=== PATIENT | female | born 1990 | race African-American/Black ===

== ENCOUNTER 2021-07-21 08:28 | Outpatient (CLI) | payer OTHER ==
[2021-07-21 20:17] LABS: SARS-CoV-2 PCR by NAA Not Detected (NotDetected)
== END 2021-07-21 08:29 | disposition home or self-care (01) ==
LOC: LABBT 08:28
PROVIDERS: ATTEND Specialist
DX: Z01.818 Encounter for other preprocedural examination (principal); E66.01 Morbid (severe) obesity due to excess calories; Z20.822 Contact with and (suspected) exposure to COVID-19
CPT/HCPCS: 93005; 93010; U0003; U0005

== ENCOUNTER 2021-07-21 12:15 | Inpatient (IN) | payer OTHER ==
[2021-07-25 12:19] VITALS: BMI 41.0
[2021-07-26] MEDS ORDERED: Ketorolac Tromethamine 30 MG/ML VIAL ONE ×2 (06:18→08:16)
[2021-07-26] MEDS ORDERED: Acetaminophen 500 MG TAB ONE (06:18)
[2021-07-26] MEDS ORDERED: Levofloxacin 500 mg/D5W 100 ml Premix Bag ONE (06:18)
[2021-07-26] MEDS ORDERED: Heparin 5,000 UNITS/ML VIAL ONE (06:18)
[2021-07-26] MEDS ORDERED: Bupivacaine 0.25% HCL 30 ML VIAL ONE (06:51)
[2021-07-26] MEDS ORDERED: Lidocaine 1% w/Epinephrine 1:100K 20 ML VIAL ONE (06:51)
[2021-07-26] MEDS ORDERED: Midazolam HCl 2 mg/2 ml Vial ONE (07:30)
[2021-07-26] MEDS ORDERED: Fentanyl 100 MCG/2 ML VIAL ONE ×4 (07:32→14:04)
[2021-07-26] MEDS ORDERED: SUGAMMADEX SODIUM 200 MG/2 ML VIAL ONE (07:33)
[2021-07-26] MEDS ORDERED: Rocuronium Bromide 10 MG/ML (10ML VIAL) ONE (08:16)
[2021-07-26] MEDS ORDERED: PROPOFOL 200 MG/20 ML VIAL ONE (08:16)
[2021-07-26] MEDS ORDERED: Dexamethasone 20 MG/5 ML VIAL ONE (08:16)
[2021-07-26] MEDS ORDERED: PHENYLEPHRINE-NS 100 MCG/ML 10 ML SYRINGE ONE (08:16)
[2021-07-26] MEDS ORDERED: Ondansetron PF 4 MG/2 ML Vial ONE ×3 (08:16→15:21)
[2021-07-26] MEDS ORDERED: Lidocaine 1% PF 5 ML VIAL ONE (08:16)
[2021-07-26] MEDS ORDERED: Promethazine HCl 25 MG/ML VIAL ONE (11:29)
[2021-07-26] MEDS ORDERED: D5 1/2 NS w/20 mEq KCL 1,000 ML ONE (15:02)
[2021-07-26] MEDS ORDERED: Morphine 4 MG/ML VIAL ONE (15:21)
[2021-07-26] MEDS ORDERED: diphenhydrAMINE 50 MG/ML VIAL IVP PRN (17:11)
[2021-07-26] MEDS ORDERED: Morphine 2 MG/ML VIAL SLOW IVP PRN (17:11)
[2021-07-26] MEDS ORDERED: Dextrose 5% in Water 1,000 ML IV PRN (17:11)
[2021-07-26] MEDS ORDERED: Dextrose 50% Abboject 50 ML SYRINGE SLOW IVP PRN (17:11)
[2021-07-26] MEDS ORDERED: Promethazine HCl 25 MG/ML VIAL IM PRN (17:11)
[2021-07-26] MEDS ORDERED: hydrALAZINE 20 MG/ML VIAL SLOW IVP PRN (17:11)
[2021-07-26] MEDS ORDERED: Ketorolac Tromethamine 30 MG/ML VIAL IVP SCH (17:30)
[2021-07-26] MEDS ORDERED: Morphine 4 MG/ML VIAL SLOW IVP PRN (17:30)
[2021-07-26] MEDS: Morphine 4 MG/ML VIAL SLOW IVP PRN ×2 (17:36→20:12)
[2021-07-26] MEDS ORDERED: Pantoprazole 40 MG VIAL IVP SCH (17:45)
[2021-07-26] MEDS: D5 1/2 NS w/20 mEq KCL 1,000 ML IV SCH ×2 (18:09→21:33)
[2021-07-26] MEDS: Enoxaparin Sodium 40 MG/0.4 ML SYRINGE SC SCH (20:12)
[2021-07-26] MEDS: Ondansetron PF 4 MG/2 ML Vial IVP PRN (20:12)
[2021-07-26] MEDS: Ketorolac Tromethamine 30 MG/ML VIAL IVP SCH (23:04)
[2021-07-27] MEDS ORDERED: Promethazine HCl 25 MG/ML VIAL IM SCH (00:45)
[2021-07-27] MEDS ORDERED: Meperidine HCl/PF 25 MG/ML VIAL IM SCH (00:45)
[2021-07-27] MEDS: Ketorolac Tromethamine 30 MG/ML VIAL IVP SCH ×4 (05:14→23:56)
[2021-07-27] MEDS: D5 1/2 NS w/20 mEq KCL 1,000 ML IV SCH ×6 (05:16→23:59)
[2021-07-27 05:28] LABS: #Lymphocytes 0.9 thou/uL (1.20-3.40); #Monocytes 0.8 thou/uL (0.11-0.59); #Neutrophils 10.3 thou/uL (1.40-6.50); %Eosinophils 0.1 % (0.0-10.0); %Lymphocytes 7.3 % (21.0-51.0); %Monocytes 6.5 % (0.0-10.0); %Neutrophils 86.1 % (42.0-75.0); Hemoglobin 9.7 g/dL (12.0-16.0); Mean Corpuscular HGB CONC 32.9 g/dL (32.0-36.0); Mean Corpuscular Hemoglobin 24.7 pg (27.0-31.0); Mean Corpuscular Volume 75.1 fL (78.0-98.0); Mean Platelet Volume 9.2 fL (7.4-10.4); Platelet Count 277 thou/uL (130-400); RBC Distribution Width 15.6 % (11.5-14.5); Red Blood Cell (RBC) Count 3.91 mill/uL (4.20-5.40)
[2021-07-27 05:55] LABS: Anion Gap 10 mmol/L (10-20); BUN (Urea Nitrogen) 6 mg/dL (7.0-18.7); Calc. Creatinine Clearance 171 mL/min (70-130); Calcium 9.2 mg/dL (7.8-10.44); Carbon Dioxide 23 mmol/L (22-29); Chloride 107 mmol/L (98-107); Glucose 196 mg/dL (70-105); Potassium 4.2 mmol/L (3.5-5.1); Sodium 136 mmol/L (136-145)
[2021-07-27] MEDS: Morphine 4 MG/ML VIAL SLOW IVP PRN (08:17)
[2021-07-27] MEDS: Pantoprazole 40 MG VIAL IVP SCH (08:18)
[2021-07-27] MEDS: Ondansetron PF 4 MG/2 ML Vial IVP PRN (10:08)
[2021-07-27] MEDS: Hydrocodone-Acetamin 15 ML UDCUP PO PRN ×3 (10:08→19:54)
[2021-07-27] MEDS: Enoxaparin Sodium 40 MG/0.4 ML SYRINGE SC SCH (19:54)
[2021-07-28] MEDS: Hydrocodone-Acetamin 15 ML UDCUP PO PRN ×2 (04:11→08:34)
[2021-07-28] MEDS: Ketorolac Tromethamine 30 MG/ML VIAL IVP SCH (06:02)
[2021-07-28 07:49] VITALS: BP 115/79; TEMP 98.6
[2021-07-28] MEDS: Pantoprazole 40 MG VIAL IVP SCH (08:33)
[2021-07-28] MEDS: D5 1/2 NS w/20 mEq KCL 1,000 ML IV SCH (08:42)
== END 2021-07-28 10:55 | disposition home or self-care (01) | DRG 621 ==
LOC: SURG A 07-26 06:08 → SURG B 07-26 16:43
PROVIDERS: ADMIT Specialist; ATTEND Specialist
PROC: 0DB64Z3 Excision of Stomach, Percutaneous Endoscopic Approach, Vertical (ICD-10-PCS; principal; 2021-07-26)
DX: E66.01 Morbid (severe) obesity due to excess calories (principal); G43.909 Migraine, unspecified, not intractable, without status migrainosus; J30.2 Other seasonal allergic rhinitis; H40.9 Unspecified glaucoma; D64.9 Anemia, unspecified; E78.5 Hyperlipidemia, unspecified; E11.9 Type 2 diabetes mellitus without complications; F32.A Depression, unspecified; F41.9 Anxiety disorder, unspecified; Z68.41 Body mass index [BMI] 40.0-44.9, adult; Z88.0 Allergy status to penicillin; Z88.1 Allergy status to other antibiotic agents
CPT/HCPCS: 36415; 80048; 85025; 88307; C9113; J1100; J1644; J1650; J1885; J1956; J2175; J2250; J2270; J2405; J2550; J2704; J3010; J3480; S0020

== ENCOUNTER 2021-08-11 12:36 | Day surgery (SDC) | payer OTHER ==
[~2021-08-11 12:36] MED LIST: Multivitamins, Adult 10 ML, Thiamine HCl 100 MG in Sodium Chloride 0.9% 1,000 ML IV SCH; Ondansetron PF 4 MG/2 ML Vial IVP PRN; Sodium Chloride 0.9% 1,000 ML IV SCH
[2021-08-11 13:02] VITALS: BP 129/76
== END 2021-08-11 15:07 | disposition home or self-care (01) ==
LOC: ONC/OP 12:36
PROVIDERS: ATTEND Specialist
DX: E86.0 Dehydration (principal); Z88.0 Allergy status to penicillin; Z88.1 Allergy status to other antibiotic agents
CPT/HCPCS: 96361; 96365; 96366; J3411; J7050

== ENCOUNTER 2021-08-23 07:59 | Day surgery (SDC) | payer OTHER ==
[2021-08-23] MEDS ORDERED: Ondansetron PF 4 MG/2 ML Vial IVP PRN (08:25)
[2021-08-23] MEDS ORDERED: Sodium Chloride 0.9% 20 ML ONE (08:26)
[2021-08-23] MEDS ORDERED: Sodium Chloride 0.9% 1,000 ML IV SCH (08:30)
[2021-08-23] MEDS ORDERED: Multivitamins, Adult 10 ML, Thiamine HCl 100 MG in Sodium Chloride 0.9% 1,000 ML IV SCH (08:30)
[2021-08-23 09:02] VITALS: BP 122/71; TEMP 98.6
== END 2021-08-23 10:47 | disposition home or self-care (01) ==
LOC: ONC/OP 07:59
PROVIDERS: ATTEND Specialist
DX: E86.0 Dehydration (principal); Z88.0 Allergy status to penicillin; Z88.1 Allergy status to other antibiotic agents
CPT/HCPCS: 96361; 96365; J3411; J7050

== ENCOUNTER 2021-10-04 11:05 | Day surgery (SDC) | payer OTHER ==
[2021-10-04 11:39] VITALS: BP 128/75; TEMP 98.2
[2021-10-04] MEDS ORDERED: Ondansetron PF 4 MG/2 ML Vial IVP PRN (11:59)
[2021-10-04] MEDS ORDERED: Sodium Chloride 0.9% 1,000 ML IV SCH (12:00)
[2021-10-04] MEDS ORDERED: Multivitamins, Adult 10 ML in Sodium Chloride 0.9% 500 ML IV SCH (12:15)
[2021-10-04] MEDS ORDERED: Multivitamins, Adult 10 ML, Thiamine HCl 100 MG in Sodium Chloride 0.9% 1,000 ML IV SCH (12:30)
== END 2021-10-04 15:24 | disposition home or self-care (01) ==
LOC: ONC/OP 11:05
PROVIDERS: ATTEND Specialist
DX: E86.0 Dehydration (principal); Z88.0 Allergy status to penicillin; Z88.1 Allergy status to other antibiotic agents
CPT/HCPCS: 96361; 96365; 96366; J3411; J7030; J7050

== ENCOUNTER 2021-11-03 04:46 | Emergency (ER) | payer OTHER ==
[2021-11-03 05:42] LABS: Bilirubin Moderate (Negative); Blood, Urine Large (Negative); Glucose, Urine (Dipstick) Negative (Negative); Ketone, Urine Trace mg/dL (Negative); Leukocyte Negative (Negative); Nitrite Positive (Negative); Protein, Urine (Dipstick) 100 mg/dL (Neg-Trace)
[2021-11-03 05:48] LABS: Pregnancy Test - Urine (BHCG) Negative (Negative)
[2021-11-03 05:55] LABS: Clarity Cloudy (Clear); Pregu Control Background? CLEAR/WHITE (CLR/WHITE); Pregu Control Bar Appear? YES (CONTROL BAR); Specific Gravity 1.034 (1.002-1.036)
[2021-11-03 05:56] LABS: Specific Gravity, Urine 1.034 (1.002-1.036)
[2021-11-03] MEDS ORDERED: Ondansetron ODT 4 MG TAB ONE (05:59)
[2021-11-03] MEDS ORDERED: Mag-Al 1200 mg/1200 mg/30 ML UDCUP ONE (05:59)
[2021-11-03] MEDS ORDERED: Ketorolac Tromethamine 30 MG/ML VIAL ONE (06:15)
[2021-11-03] MEDS ORDERED: cefTRIAXone\\ROCEPHIN 2 GM VIAL ONE (06:37)
[2021-11-03 07:11] LABS: RBC/HPF 21-50 HPF (0-3); WBC/HPF 0-3 HPF (0-3)
[2021-11-03 07:11] LABS: #Lymphocytes 1.1 thou/uL (1.20-3.40); #Monocytes 0.4 thou/uL (0.11-0.59); #Neutrophils 4.8 thou/uL (1.40-6.50); %Basophils 0.2 % (0.0-1.0); %Eosinophils 0.4 % (0.0-10.0); %Lymphocytes 17.5 % (21.0-51.0); %Monocytes 5.7 % (0.0-10.0); %Neutrophils 76.2 % (42.0-75.0); Hemoglobin 10.3 g/dL (12.0-16.0); Mean Corpuscular Hemoglobin 24.6 pg (27.0-31.0); Mean Corpuscular Volume 79.4 fL (78.0-98.0); Mean Platelet Volume 9.3 fL (7.4-10.4); Platelet Count 271 thou/uL (130-400); RBC Distribution Width 15.3 % (11.5-14.5); Red Blood Cell (RBC) Count 4.18 mill/uL (4.20-5.40); White Blood Cell (WBC) Count 6.4 thou/uL (4.8-10.8)
[2021-11-03 07:13] LABS: Bacteria/HPF 2+ HPF (None Seen)
[2021-11-03 07:31] LABS: ALT (SGPT) 11 U/L (8-55); AST (SGOT) 14 U/L (5-34); Albumin 4.2 g/dL (3.5-5.0); Alkaline Phosphatase 79 U/L (40-110); Anion Gap 12 mmol/L (10-20); BUN (Urea Nitrogen) 10 mg/dL (7.0-18.7); Bilirubin, Total 0.5 mg/dL (0.2-1.2); Calc. Creatinine Clearance 0 mL/min (70-130); Calcium 10.1 mg/dL (7.8-10.44); Carbon Dioxide 24 mmol/L (22-29); Chloride 107 mmol/L (98-107); Globulin 3.1 g/dL (2.4-3.5); Glucose 115 mg/dL (70-105); Potassium 3.9 mmol/L (3.5-5.1); Protein, Total 7.3 g/dL (6.0-8.3); Sodium 139 mmol/L (136-145)
== END 2021-11-03 08:35 | disposition home or self-care (01) ==
LOC: ERS 04:46
DX: N13.2 Hydronephrosis with renal and ureteral calculous obstruction (principal); N39.0 Urinary tract infection, site not specified; E11.9 Type 2 diabetes mellitus without complications
CPT/HCPCS: 74176; 80053; 81003; 81015; 81025; 85025; 87086; J0696; J1885; Q0162

== ENCOUNTER 2021-11-03 20:36 | Emergency (ER) | payer OTHER ==
[2021-11-03] MEDS ORDERED: Mag-Al 1200 mg/1200 mg/30 ML UDCUP ONE (21:17)
[2021-11-03] MEDS ORDERED: Ondansetron ODT 4 MG TAB ONE (22:35)
== END 2021-11-04 00:55 | disposition home or self-care (01) ==
LOC: ERS 20:36
DX: N20.0 Calculus of kidney (principal); E86.0 Dehydration; E11.9 Type 2 diabetes mellitus without complications
CPT/HCPCS: 74176; 80053; 81003; 81015; 81025; 85025; 87086; 96365; 96372; 99283; J0696; J1885; Q0162

== ENCOUNTER 2023-07-25 07:56 | Emergency (ER) | payer OTHER ==
[2023-07-25 09:12] LABS: #Monocytes 0.2 thou/uL (0.11-0.59); #Neutrophils 1.4 thou/uL (1.40-6.50); %Basophils 1.1 % (0.0-1.0); %Eosinophils 0.7 % (0.0-10.0); %Lymphocytes 40.1 % (21.0-51.0); %Monocytes 7.9 % (0.0-10.0); %Neutrophils 50.2 % (42.0-75.0); Hematocrit 33.9 % (36.0-47.0); Hemoglobin 10.5 g/dL (12.0-16.0); Mean Corpuscular Hemoglobin 25.6 pg (27.0-31.0); Mean Corpuscular Volume 82.7 fl (78.0-98.0); Mean Platelet Volume 9.9 fL (7.4-10.4); Platelet Count 263 10x3/uL (130-400); White Blood Cell (WBC) Count 2.8 10x3/uL (4.8-10.8)
[2023-07-25 09:32] LABS: BHCG - Serum Negative (NEGATIVE); Pregs Control Background? CLEAR/WHITE (CLR/WHITE); Pregs Control Bar Appear? YES (CONTROL BAR)
[2023-07-25 09:36] LABS: ALT (SGPT) 15 U/L (8-55); AST (SGOT) 21 U/L (5-34); Albumin 4.5 g/dL (3.5-5.0); Alkaline Phosphatase 51 U/L (40-110); Anion Gap 9 mmol/L (10-20); BUN (Urea Nitrogen) 11 mg/dL (7.0-18.7); Bilirubin, Total 0.7 mg/dL (0.2-1.2); Calc. Creatinine Clearance 0 mL/min (70-130); Calcium 10.3 mg/dL (7.8-10.44); Carbon Dioxide 29 mmol/L (22-29); Chloride 105 mmol/L (98-107); Estimated GFR 101; Globulin 2.6 g/dL (2.4-3.5); Glucose 88 mg/dL (70-105); Magnesium 1.9 mg/dL (1.6-2.6); Potassium 4.6 mmol/L (3.5-5.1); Protein, Total 7.1 g/dL (6.0-8.3); Sodium 138 mmol/L (136-145)
[2023-07-25 11:51] LABS: HIV (1/2) Antibody/Antigen Non-Reactive (NonReactive); HIV 1/2 INDEX 0.11 S/CO (<1.00)
== END 2023-07-25 10:59 | disposition home or self-care (01) ==
LOC: ERS 07:56
DX: R26.81 Unsteadiness on feet (principal)
CPT/HCPCS: 36415; 83735; 84703; 87389; 93005; 99283